=== PATIENT | male | born 1990 | race Caucasian/White ===

== ENCOUNTER 2017-09-12 17:45 | Emergency (ER) | payer MEDICAID, OTHER ==
[2017-09-12 18:57] LABS: Urine Appearance Cloudy; Urine Blood 3+ (Negative); Urine Color Yellow; Urine Ketones Negative (Negative); Urine Protein 2+(100 mg/dL) (Negative); Urine Red Blood Cell 3+(>10/hpf) (Absent); Urine Specific Gravity 1.011 (1.010-1.030); Urine Urobilinogen Negative (Negative); Urine White Blood Cell 1+(6-10/hpf) (Absent)
[2017-09-12] MEDS ORDERED: Mouth Piece, Nicotine* 1 EACH CARTRIDGE INH PRN (19:00)
[2017-09-12] MEDS ORDERED: Nicotine Inhaler* 10 MG AMP INH ONE (19:00)
[2017-09-12] MEDS ORDERED: Mouth Piece, Nicotine* 1 EACH CARTRIDGE ONE (19:05)
--- NOTE | 2017-09-12 19:31 | ED ---
Psychiatric Complaint - HPI Summary HPI Summary: This is inessa Pastrana documenting for attending Willis Christy MD. This patient is a 27 year old M BIBA to ED with a chief complaint of depression since [employer]. He reports that he broke down in the middle of traffic at a stop light. He was crying because his friend had recently and his ashes were spread this morning. Broke down in middle of traffic at a stop light. Crying and friend recently and spread his ashes this morning. The patient rates the pain 0/10 in severity. Symptoms aggravated by recent loss. Symptoms alleviated by nothing. Patient reports feeling depressed but has been eating and drinking okay. Patient denies SI. He is not taking medications and has no hx of depression or anxiety. The patient has done marijuana occasionally and heroine a few times. - History Of Current Complaint Chief Complaint: EDMentalHealth Time Seen by Provider: 09/12/17 18:45 Hx Obtained From: Patient Onset/Duration: Sudden Onset, Lasting Hours, Still Present Timing: Hours Severity Currently: None Character: Depressed Aggravating Factor(s): Other - recent loss Alleviating Factor(s): Nothing Related History: Negative For: Prior Psychiatric Issues Has Suicidal: Denies: Thoughts Recent Stressor(s): loss of a friend - Allergies/Home Medications Allergies/Adverse Reactions: Allergies Allergy/AdvReac Type Severity Reaction Status Date / Time No Known Allergies Allergy Verified 09/12/17 17:58 Home Medications: Home Medications Buprenorphine HCl/Naloxone HCl [Suboxone] 1 film SL BID 09/12/17 [History Confirmed 09/12/17] Mirtazapine TAB* [Remeron TAB*] 30 mg PO BEDTIME 09/12/17 [History Confirmed ] PMH/Surg Hx/FS Hx/Imm Hx Endocrine/Hematology History: Denies: Hx Diabetes Cardiovascular History: Denies: Hx Coronary Artery Disease, Hx Hypertension History: Reports: Hx Renal Disease Infectious Disease History: No Infectious Disease History: Denies: Traveled Outside the [place] in Last 30 Days - Family History Known Family History: Negative: Cardiac Disease, Hypertension, Diabetes - Social History Alcohol Use: None Substance Use Type: Reports: Other Substance Use Comment - Amount & Last Used: Former Smoking Status (MU): Light Every Day Tobacco Smoker Review of Systems Positive: Other - has been eating and drinking okay Psychological: Other - crying in middle of traffic, "broke down"; denies SI Positive: Depressed All Other Systems Reviewed And Are Negative: Yes Physical Exam - Summary Physical Exam Summary: VITAL SIGNS: Reviewed. GENERAL: Patient is a well-developed and nourished MALE who is lying comfortable in the stretcher. Patient is not in any acute respiratory distress. HEAD AND FACE: No signs of trauma. No ecchymosis, hematomas or skull depressions. No sinus tenderness. EYES: PERRLA, EOMI x 2, No injected conjunctiva, no nystagmus. EARS: Hearing grossly intact. Ear canals and tympanic membranes are within normal limits. MOUTH: Oropharynx within normal limits. NECK: Supple, trachea is midline, no adenopathy, no JVD, no carotid bruit, no c- spine tenderness, neck with full ROM. CHEST: Symmetric, no tenderness at palpation LUNGS: Clear to auscultation bilaterally. No wheezing or crackles. CVS: Regular rate and rhythm, S1 and S2 present, no murmurs or gallops appreciated. ABDOMEN: Soft, non-tender. No signs of distention. No rebound no guarding, and no masses palpated. Bowel sounds are normal. EXTREMITIES: FROM in all major joints, no edema, no cyanosis or clubbing. NEURO: Alert and oriented x 3. No acute neurological deficits. Speech is normal and follows commands. SKIN: Dry and warm PSYCH: Depressed, quiet, and denies any suicidal thoughts or plan. No homicidal thoughts or plan. No signs of psychosis or pressure speech. No tangential speech. Triage Information Reviewed: Yes Vital Signs On Initial Exam: Initial Vitals Temp Pulse Resp BP Pulse Ox 99.0 F 117 16 128/85 97 09/12/17 17:45 09/12/17 17:45 09/12/17 17:45 09/12/17 17:45 09/12/17 17:45 Vital Signs Reviewed: Yes Diagnostics - Vital Signs Vital Signs Temp Pulse Resp BP Pulse Ox 09/12/17 19:00 99.5 F 95 16 123/79 98 09/12/17 17:45 99.0 F 117 16 128/85 97 - Laboratory Lab Results: Lab Results 09/12/17 09/12/17 Range/Units 18:34 18:34 Urine Color Yellow Urine Appearance Cloudy Urine pH 7.0 (5-9) Ur Specific [place] 1.011 (1.010-1.030) Urine Protein 2+(100 mg/dl) A (Negative) Urine Ketones Negative (Negative) Urine Blood 3+ A (Negative) Urine Nitrate Positive A (Negative) Urine Bilirubin Negative (Negative) Urine Urobilinogen Negative (Negative) Ur Leukocyte Esterase 1+ A (Negative) Urine WBC (Auto) 1+(6-10/hpf) A (Absent) Urine RBC (Auto) 3+(>10/hpf) A (Absent) Urine Bacteria Absent (Absent) Urine Glucose Negative (Negative) Urine Opiates Screen Presumptive positive A (None Detect) Ur Barbiturates Screen None detected (None Detect) Ur Phencyclidine Scrn None detected (None Detect) Ur Amphetamines Screen None detected (None Detect) U Benzodiazepines Scrn None detected (None Detect) Urine Cocaine Screen None detected (None Detect) U Cannabinoids Screen Presumptive positive A (None Detect) Result Diagrams: 09/12/17 20:32 09/12/17 20:32 Lab Statement: Any lab studies that have been ordered have been reviewed, and results considered in the medical decision making process. Course/Dx - Course Assessment/Plan: Blood work without a significant abnormalities except for positive opiates and cannabinoids. Patient is medically cleared. Patient is awaiting for mental health evaluation. Patient will be signed out to Dr. Mccabe for at shift change. The patient is at this time cooperative and hemodynamically stable. - Differential Dx/Clinical Impression Provider Diagnosis: Depression Discharge - Sign-Out/Discharge Documenting (check all that apply): Sign-Out Patient Signing out patient TO: Larry Mccabe - Discharge Plan Referrals: Chavo Hussein MD [Primary Care Provider] -
[2017-09-12 20:37] LABS: ABS Basophils 0 10^3/ul (0-0.2); ABS Eosinophils 0.1 10^3/ul (0-0.6); ABS Lymphocytes 0.7 10^3/ul (1.0-4.8); ABS Monocytes 0.6 10^3/ul (0-0.8); ABS Neutrophils 4.1 10^3/ul (1.5-7.7); ABS Nucleated RBC 0 10^3/ul; Eosinophil % 1.2 % (0-6); Hematocrit 28 % (42-52); Hemoglobin 9.6 g/dl (14.0-18.0); Lymphocyte % 12.7 % (25-47); Mean Corpuscular HGB Conc 34 g/dl (31-36); Mean Corpuscular Hemoglobin 26 pg (27-31); Mean Corpuscular Volume 77 fL (80-94); Mean Platelet Volume 6.7 um3 (7.4-10.4); Nucleated Red Blood Cells % 0.1; Platelet Count 167 10^3/ul (150-450); Red Blood Count 3.65 10^6/ul (4.00-5.40); Red Cell Distribution Width 14 % (10.5-15); White Blood Count 5.5 10^3/ul (3.5-10.8)
[2017-09-12 20:57] LABS: EGFR Non-African American 54.9 (>60)
--- NOTE | 2017-09-13 03:54 | ED ---
Progress - Progress Note Progress Note: Pending evaluation in morning. - Consult/PCP Time Called: 01:28 Re-Evaluation - Re-Evaluation First Eval Re-Evaluation Time: 03:50 Change: Unchanged Comment: Cement Paver discussed pt with Emiliano. Pt will be held until morning to be re-evaluated and get collatorals. Course/Dx - Course Course Of Treatment: Pending evaluation. - Diagnoses Provider Diagnoses: Depression Discharge - Sign-Out/Discharge Documenting (check all that apply): Sign-Out Patient, Receiving Sign-Out Signing out patient TO: Donte Spring Receiving patient FROM: Bart Kee - Discharge Plan Referrals: Chavo Hussein MD [Primary Care Provider] -
--- NOTE | 2017-09-13 09:25 | PN ---
ED Flex Patient Progress Note Date of Service: 09/12/17 Subjective: This is a 27 year-old M who is pending admission to [facility] / transfer to another psychiatric facility / discharge to home / or being observed secondary to depression. Pt. examined around 0830 in F1. He is watching TV and offers no complaints. Objective: Vitals: Most recent vital signs documented below. General NAD, Alert and oriented x3. Laboratory: Current laboratory results documented below. Assessment: Pending MHE. Plan: Pending psychiatric or medical consultation to observe / transfer / admit / discharge will follow up daily . Vital Signs Temp Pulse Resp BP Pulse Ox 99.5 F 81 15 101/63 100 09/13/17 00:25 09/13/17 00:25 09/13/17 00:25 09/13/17 00:25 09/13/17 00:25 Lab Results - Entire Visit 09/12/17 09/12/17 09/12/17 20:32 20:32 18:34 WBC 5.5 RBC 3.65 L Hgb 9.6 L Hct 28 L MCV 77 L MCH 26 L MCHC 34 RDW 14 Plt Count 167 MPV 6.7 L Neut % (Auto) 75.5 Lymph % (Auto) 12.7 L [place] % (Auto) 10.3 H Eos % (Auto) 1.2 Baso % (Auto) 0.3 Absolute Neuts (auto) 4.1 Absolute Lymphs (auto) 0.7 L Absolute Monos (auto) 0.6 Absolute Eos (auto) 0.1 Absolute Basos (auto) 0 Absolute Nucleated RBC 0 Nucleated RBC % 0.1 Sodium 134 L Potassium 3.9 Chloride 97 L Carbon Dioxide 30 Anion Gap 7 BUN 26 H Creatinine 1.51 H Est GFR ( Amer) 66.4 Est GFR (Non-Af Amer) 54.9 BUN/Creatinine Ratio 17.2 Glucose 121 H Calcium 8.9 Total Bilirubin 0.20 AST 14 ALT 20 Alkaline Phosphatase 99 Total Protein 7.0 Albumin 3.5 Globulin 3.5 Albumin/Globulin Ratio 1.0 TSH 3.88 Urine Color Urine Appearance Urine pH Ur Specific [place] Urine Protein Urine Ketones Urine Blood Urine Nitrate Urine Bilirubin Urine Urobilinogen Ur Leukocyte Esterase Urine WBC (Auto) Urine RBC (Auto) Urine Bacteria Urine Glucose Salicylates < 2.50 Urine Opiates Screen Presumptive positive A Acetaminophen < 15 Ur Barbiturates Screen None detected Ur Phencyclidine Scrn None detected Ur Amphetamines Screen None detected U Benzodiazepines Scrn None detected Urine Cocaine Screen None detected U Cannabinoids Screen Presumptive positive A Serum Alcohol < 10 09/12/17 18:34 WBC RBC Hgb Hct MCV MCH MCHC RDW Plt Count MPV Neut % (Auto) Lymph % (Auto) [place] % (Auto) Eos % (Auto) Baso % (Auto) Absolute Neuts (auto) Absolute Lymphs (auto) Absolute Monos (auto) Absolute Eos (auto) Absolute Basos (auto) Absolute Nucleated RBC Nucleated RBC % Sodium Potassium Chloride Carbon Dioxide Anion Gap BUN Creatinine Est GFR ( Amer) Est GFR (Non-Af Amer) BUN/Creatinine Ratio Glucose Calcium Total Bilirubin AST ALT Alkaline Phosphatase Total Protein Albumin Globulin Albumin/Globulin Ratio TSH Urine Color Yellow Urine Appearance Cloudy Urine pH 7.0 Ur Specific [place] 1.011 Urine Protein 2+(100 mg/dl) A Urine Ketones Negative Urine Blood 3+ A Urine Nitrate Positive A Urine Bilirubin Negative Urine Urobilinogen Negative Ur Leukocyte Esterase 1+ A Urine WBC (Auto) 1+(6-10/hpf) A Urine RBC (Auto) 3+(>10/hpf) A Urine Bacteria Absent Urine Glucose Negative Salicylates Urine Opiates Screen Acetaminophen Ur Barbiturates Screen Ur Phencyclidine Scrn Ur Amphetamines Screen U Benzodiazepines Scrn Urine Cocaine Screen U Cannabinoids Screen Serum Alcohol
[2017-09-13 09:42] VITALS: BP 114/73
--- NOTE | 2017-09-15 18:29 | PN ---
Progress Note - Progress Note Date of Service: 09/12/17 Note: Pt. seen in ER 09/12 for MHE. Urine culture obtained and is growing >100,000 enterobacter. Pt. was dc home. Attempted to call pt. to at 0855 but there was no answer and no voicemail. Certified letter sent.
== END 2017-09-13 04:15 | disposition home or self-care (01) ==
LOC: ED 17:45
DX: F32.9 Major depressive disorder, single episode, unspecified (principal); F17.210 Nicotine dependence, cigarettes, uncomplicated
CPT/HCPCS: 36415; 80053; 80307; 80320; 80329; 81003; 81015; 84443; 85025; 87077; 87086; 87186; 99283; A9270-GY; G0480

== ENCOUNTER 2018-04-14 12:19 | Emergency (ER) | payer OTHER ==
[2018-04-14 12:30] VITALS: BP 126/76
--- NOTE | 2018-04-14 13:04 | UC ---
Complaint Male HPI - HPI Summary HPI Summary: Intermittent left testicular pain over the past few weeks. No urinary symptoms or fever. A few days ago pain increased and left testicle became very swollen. Admits to unprotected sex with multiple partners over the past few months. No penile discharge. - History of Current Complaint Chief Complaint: UCGU Stated Complaint: PERSONAL Time Seen by Provider: 04/14/18 12:37 Hx Obtained From: Patient Onset/Duration: Gradual Onset, Lasting Weeks, Still Present Timing: Constant Severity Initially: Moderate Severity Currently: Moderate Pain Intensity: 7 Pain Scale Used: 0-10 Numeric Location: Testicle Character: Sharp Aggravating Factor(s): Palpation Alleviating Factor(s): Other - aspirin Associated Signs And Symptoms: Negative: Back Pain, Fever, Hematuria, Dysuria, Nausea, Penile Discharge - Allergies/Home Medications Allergies/Adverse Reactions: Allergies Allergy/AdvReac Type Severity Reaction Status Date / Time No Known Allergies Allergy Verified 04/14/18 12:30 Home Medications: Home Medications Gabapentin 1 tab PO DAILY 04/14/18 [History Confirmed 04/14/18] traZODone TAB* [Desyrel TAB*] 1 tab PO DAILY 04/14/18 [History Confirmed ] PMH/Surg Hx/FS Hx/Imm Hx Previously Healthy: Yes - Surgical History Surgical History: None - Family History Known Family History: Negative: Cardiac Disease, Hypertension, Diabetes - Social History Alcohol Use: None Substance Use Type: None Substance Use Comment - Amount & Last Used: Former Smoking Status (MU): Light Every Day Tobacco Smoker Review of Systems All Other Systems Reviewed And Are Negative: Yes Constitutional: Positive: Negative Respiratory: Positive: Negative Cardiovascular: Positive: Negative Gastrointestinal: Positive: Negative Genitourinary: Positive: Other - LEFT TESTICULAR PAIN, SWELLING. Negative: Vaginal/Penile Discharge Physical Exam Triage Information Reviewed: Yes Appearance: Well-Appearing, No Pain Distress, Well-Nourished Vital Signs: Initial Vital Signs Temp 99.2 F 04/14/18 12:26 Pulse 86 04/14/18 12:26 Resp 18 04/14/18 12:26 BP 126/76 04/14/18 12:26 Pulse Ox 100 04/14/18 12:26 Laboratory Tests 04/14/18 12:38 POC Urine Color Yellow POC Urine Clarity Clear POC Urine pH 5.5 POC Ur Specif [place] >= 1.030 POC Urine Protein 1+ A POC Ur Glucose (UA) Negative POC Urine Ketones Negative POC Urine Blood 3+ A POC Urine Nitrite Negative POC Urine Bilirubin Negative POC Urine Urobilinogen 0.2 POC U Leukocyte Esteras Trace A Vital Signs Reviewed: Yes Eyes: Positive: Conjunctiva Clear ENT: Positive: Hearing grossly normal Neck: Positive: Supple Respiratory: Positive: No respiratory distress, No accessory muscle use Cardiovascular: Positive: Pulses Normal Abdomen Description: Positive: Nontender, Soft Male Genital Exam: Positive: Epididymal Tenderness, Scrotum Tenderness (L), Testicular Tenderness (L), Other - LEFT SCROTUM BOGGY. SHOTTY BILATERAL INGUINAL LAD. NO LESIONS. Negative: Scrotum Tenderness (R), Testicular Tenderness (R), Urethral Discharge Musculoskeletal: Positive: No Edema Neurological: Positive: Alert Psychological: Positive: Age Appropriate Behavior Skin: Negative: Rashes Diagnostics - Radiology TESTICULAR US Radiology Interpretation Completed By: Radiologist Summary of Radiographic Findings: 1. FINDINGS MOST CONSISTENT WITH LEFT EPIDIDYMITIS. 2. COMPLEX LEFT HYDROCELE. Complaint Male Course/Dx - Differential Dx/Diagnosis Provider Diagnosis: Left epididymitis, Left hydrocele Discharge - Sign-Out/Discharge Documenting (check all that apply): Patient Departure All imaging exams completed and their final reports reviewed: Yes - Discharge Plan Condition: Stable Disposition: HOME Prescriptions: Doxycycline Monohydrate 1 cap PO BID #20 cap Patient Education Materials: Epididymitis (ED), Hydrocele (ED) Referrals: Chavo Hussein MD [Primary Care Provider] - If Needed Margarito Menjivar MD [Medical Doctor] - 3 Days Additional Instructions: TESTICULAR ULTRASOUND TODAY SHOWED: 1. FINDINGS MOST CONSISTENT WITH LEFT EPIDIDYMITIS. 2. COMPLEX LEFT HYDROCELE. CALL UROLOGY TODAY FOR A FOLLOW-UP APPT WITHIN A FEW DAYS. YOU HAVE BEEN GIVEN A SHOT OF 250MG ROCEPHIN TODAY. TAKE THE DOXYCYCLINE TWICE DAILY FOR THE FULL 10 DAYS. NO SEX FOR AT LEAST 2 WEEKS. YOUR URINE HAS BEEN SENT FOR CULTURE AND TESTING FOR GONORRHEA AND CHLAMYDIA. GO TO THE ER WITHOUT FAIL IF YOU DEVELOP WORSENING SWELLING, PAIN, FEVER, NAUSEA , INABILITY TO URINATE, BLOOD IN THE URINE OR ANY OTHER CONCERNING SYMPTOMS. - Billing Disposition and Condition Condition: STABLE Disposition: Home
[2018-04-14] MEDS ORDERED: Lidocaine 1%* 5 ML VIAL INJ ONE (13:46)
[2018-04-14] MEDS: cefTRIAXone VIAL(*) 250 MG VIAL IM ONE ×2 (13:51→13:52)
--- NOTE | 2018-04-15 15:33 | UC ---
- Progress Note Progress Note: urine cx NEGATIVE/NO GROWTH. ok to stop antibx. Course/Dx - Diagnoses Provider Diagnoses: Left epididymitis, Left hydrocele Discharge - Sign-Out/Discharge Documenting (check all that apply): Post-Discharge Follow Up All imaging exams completed and their final reports reviewed: Yes - Discharge Plan Condition: Stable Disposition: HOME Prescriptions: Doxycycline Monohydrate 1 cap PO BID #20 cap Patient Education Materials: Epididymitis (ED), Hydrocele (ED) Referrals: Chavo Hussein MD [Primary Care Provider] - If Needed Margarito Menjivar MD [Medical Doctor] - 3 Days Additional Instructions: TESTICULAR ULTRASOUND TODAY SHOWED: 1. FINDINGS MOST CONSISTENT WITH LEFT EPIDIDYMITIS. 2. COMPLEX LEFT HYDROCELE. CALL UROLOGY TODAY FOR A FOLLOW-UP APPT WITHIN A FEW DAYS. YOU HAVE BEEN GIVEN A SHOT OF 250MG ROCEPHIN TODAY. TAKE THE DOXYCYCLINE TWICE DAILY FOR THE FULL 10 DAYS. NO SEX FOR AT LEAST 2 WEEKS. YOUR URINE HAS BEEN SENT FOR CULTURE AND TESTING FOR GONORRHEA AND CHLAMYDIA. GO TO THE ER WITHOUT FAIL IF YOU DEVELOP WORSENING SWELLING, PAIN, FEVER, NAUSEA , INABILITY TO URINATE, BLOOD IN THE URINE OR ANY OTHER CONCERNING SYMPTOMS. - Billing Disposition and Condition Condition: STABLE Disposition: Home
--- NOTE | 2018-04-16 16:56 | UC ---
- Progress Note Progress Note: Review of chart and advice to give this patient. Clinical record reviewed, with diagnosis of epididymitis with associated testicular swelling. Chlamydia is still pending. Even if Chlamydia is negative, I advise continuation of the doxycycline given the clinical history and diagnosis of epididymitis. Course/Dx - Diagnoses Provider Diagnoses: Left epididymitis, Left hydrocele Discharge - Sign-Out/Discharge Documenting (check all that apply): Patient Departure All imaging exams completed and their final reports reviewed: Yes - Discharge Plan Condition: Stable Disposition: HOME Prescriptions: Doxycycline Monohydrate 1 cap PO BID #20 cap Patient Education Materials: Epididymitis (ED), Hydrocele (ED) Referrals: Chavo Hussein MD [Primary Care Provider] - If Needed Margarito Menjivar MD [Medical Doctor] - 3 Days Additional Instructions: TESTICULAR ULTRASOUND TODAY SHOWED: 1. FINDINGS MOST CONSISTENT WITH LEFT EPIDIDYMITIS. 2. COMPLEX LEFT HYDROCELE. CALL UROLOGY TODAY FOR A FOLLOW-UP APPT WITHIN A FEW DAYS. YOU HAVE BEEN GIVEN A SHOT OF 250MG ROCEPHIN TODAY. TAKE THE DOXYCYCLINE TWICE DAILY FOR THE FULL 10 DAYS. NO SEX FOR AT LEAST 2 WEEKS. YOUR URINE HAS BEEN SENT FOR CULTURE AND TESTING FOR GONORRHEA AND CHLAMYDIA. GO TO THE ER WITHOUT FAIL IF YOU DEVELOP WORSENING SWELLING, PAIN, FEVER, NAUSEA , INABILITY TO URINATE, BLOOD IN THE URINE OR ANY OTHER CONCERNING SYMPTOMS. - Billing Disposition and Condition Condition: STABLE Disposition: Home
[2018-04-17 13:54] LABS: Neisseria gonorrhoeae (GC) RNA Negative (Negative)
--- NOTE | 2018-04-17 18:11 | UC ---
- Progress Note Progress Note: Patient will be called by nurse, should continue doxycycline for full course and no sexual activity x 1 week after completing antibiotics. -Liliya Junior PAC Course/Dx - Diagnoses Provider Diagnoses: Left epididymitis, Left hydrocele Discharge - Sign-Out/Discharge Documenting (check all that apply): Patient Departure All imaging exams completed and their final reports reviewed: Yes - Discharge Plan Condition: Stable Disposition: HOME Prescriptions: Doxycycline Monohydrate 1 cap PO BID #20 cap Patient Education Materials: Epididymitis (ED), Hydrocele (ED) Referrals: Chavo Hussein MD [Primary Care Provider] - If Needed Margarito Menjivar MD [Medical Doctor] - 3 Days Additional Instructions: TESTICULAR ULTRASOUND TODAY SHOWED: 1. FINDINGS MOST CONSISTENT WITH LEFT EPIDIDYMITIS. 2. COMPLEX LEFT HYDROCELE. CALL UROLOGY TODAY FOR A FOLLOW-UP APPT WITHIN A FEW DAYS. YOU HAVE BEEN GIVEN A SHOT OF 250MG ROCEPHIN TODAY. TAKE THE DOXYCYCLINE TWICE DAILY FOR THE FULL 10 DAYS. NO SEX FOR AT LEAST 2 WEEKS. YOUR URINE HAS BEEN SENT FOR CULTURE AND TESTING FOR GONORRHEA AND CHLAMYDIA. GO TO THE ER WITHOUT FAIL IF YOU DEVELOP WORSENING SWELLING, PAIN, FEVER, NAUSEA , INABILITY TO URINATE, BLOOD IN THE URINE OR ANY OTHER CONCERNING SYMPTOMS. - Billing Disposition and Condition Condition: STABLE Disposition: Home
== END 2018-04-14 14:16 | disposition home or self-care (01) ==
LOC: UCEAST 12:19
DX: N45.1 Epididymitis (principal); N43.3 Hydrocele, unspecified
CPT/HCPCS: 76870; 81003; 87086; 87491; 87591; 96372; 99212; G0463; J0696

== ENCOUNTER 2018-07-03 03:22 | Emergency (ER) | payer OTHER ==
--- NOTE | 2018-07-03 03:42 | ED ---
Psychiatric Complaint - HPI Summary HPI Summary: This patient is a 27 year old M brought in by ambulance to ED with a chief complaint of visual and auditory hallucinations since earlier tonight. The patient saw people in his yard and heard a aaron phone ring and then man talking into the phone. He then went to bed and got up again to get a drink when he thought he saw a man and called the clinical nursing coordinator. The patient lives alone but his landlord does live in the apartment above him. The patient rates the pain 0/ 10 in severity. Symptoms aggravated by nothing. Symptoms alleviated by nothing. Patient denies SI/HI. He denies any other complaints. The patient did relapse two days ago on heroine and some other kind of drug. He reports he has not had anything today. The patient is on Suboxone, Gabapentin, and Trazadone. He reports he has not had any episodes similar to this before. PMHx of depression and anxiety. - History Of Current Complaint Chief Complaint: EDMentalHealth Time Seen by Provider: 07/03/18 03:29 Hx Obtained From: Patient Onset/Duration: Sudden Onset, Resolved Timing: Intermittent Episode Lasting Severity Currently: None Aggravating Factor(s): Nothing Alleviating Factor(s): Nothing Associated Signs And Symptoms: Positive: Hallucinating - visual and auditory Related History: Positive For: Prior Psychiatric Issues Has Suicidal: Denies: Thoughts, With A Plan - Allergies/Home Medications Allergies/Adverse Reactions: Allergies Allergy/AdvReac Type Severity Reaction Status Date / Time No Known Allergies Allergy Verified 04/14/18 12:30 PMH/Surg Hx/FS Hx/Imm Hx Endocrine/Hematology History: Denies: Hx Diabetes Cardiovascular History: Denies: Hx Coronary Artery Disease, Hx Hypertension History: Reports: Hx Renal Disease Psychiatric History: Denies: Hx of Violent Episodes Against Others Infectious Disease History: No Infectious Disease History: Denies: Traveled Outside the [place] in Last 30 Days - Family History Known Family History: Negative: Cardiac Disease, Hypertension, Diabetes - Social History Alcohol Use: None Substance Use Type: Reports: None Substance Use Comment - Amount & Last Used: Former Smoking Status (MU): Light Every Day Tobacco Smoker Review of Systems Positive: Other - has no other complaints Psychological: Other - visual and auditory hallucinations; denies SI/HI All Other Systems Reviewed And Are Negative: Yes Physical Exam - Summary Physical Exam Summary: VITAL SIGNS: Reviewed. GENERAL: Patient is a well-developed and nourished MALE who is lying comfortable in the stretcher. Patient is not in any acute respiratory distress. HEAD AND FACE: No signs of trauma. No ecchymosis, hematomas or skull depressions. No sinus tenderness. EYES: PERRLA, EOMI x 2, No injected conjunctiva, no nystagmus. EARS: Hearing grossly intact. Ear canals and tympanic membranes are within normal limits. MOUTH: Oropharynx within normal limits. NECK: Supple, trachea is midline, no adenopathy, no JVD, no carotid bruit, no c- spine tenderness, neck with full ROM CHEST: Symmetric, no tenderness at palpation LUNGS: Clear to auscultation bilaterally. No wheezing or crackles. CVS: Regular rate and rhythm, S1 and S2 present, no murmurs or gallops appreciated. ABDOMEN: Soft, non-tender. No signs of distention. No rebound no guarding, and no masses palpated. Bowel sounds are normal. EXTREMITIES: FROM in all major joints, no edema, no cyanosis or clubbing. NEURO: Alert and oriented x 3. No acute neurological deficits. Speech is normal and follows commands. SKIN: Dry and warm Triage Information Reviewed: Yes Vital Signs On Initial Exam: Initial Vitals Temp Pulse Resp BP Pulse Ox 98.9 F 118 18 140/84 96 07/03/18 03:28 07/03/18 03:28 07/03/18 03:28 07/03/18 03:28 07/03/18 03:28 Vital Signs Reviewed: Yes Diagnostics - Vital Signs Vital Signs Temp Pulse Resp BP Pulse Ox 07/03/18 03:28 98.9 F 118 18 140/84 96 - Laboratory Result Diagrams: 07/03/18 03:46 07/03/18 03:46 Lab Statement: Any lab studies that have been ordered have been reviewed, and results considered in the medical decision making process. Course/Dx - Course Assessment/Plan: This patient is a 27 year old M brought in by ambulance to ED with a chief complaint of visual and auditory hallucinations since earlier tonight. This patient is medically cleared for MHE at 0442. MHE done by Dr. Parks at 0546. 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 Patient understands and agrees with this plan. - Differential Dx/Clinical Impression Differential Diagnosis/HQI/PQRI: Positive: Other - drug induced psychosis Provider Diagnosis: Drug-induced psychotic disorder Discharge - Sign-Out/Discharge Documenting (check all that apply): Patient Departure - discharge Patient Received Moderate/Deep Sedation with Procedure: No - Discharge Plan Condition: Stable Disposition: HOME Patient Education Materials: Brief Psychotic Disorder (ED) Referrals: Chavo Hussein MD [Primary Care Provider] - 3 Days Additional Instructions: Per completion of a mental health evaluation, you are cleared for release and do not require inpatient psychiatric hospitalization at this time. Please go to nearest emergency room or call 911 if safety concerns arise or condition worsens. Important Phone Numbers: [facility] . [phone] Suicide Prevention and Crisis Services........................ [phone] [facility] Prevention [facility]............................ [phone] ([phone]) [facility]....................... [phone] Alcoholics Anonymous............................................... [facility].............. [phone] [facility].............................................. [phone] - Attestation Statements Document Initiated by Scribe: Yes Documenting Scribe: Pancho Pastrana Provider For Whom Iwona is Documenting (Include Credential): Larry Mccabe MD Scribe Attestation: Pancho Hager, scribed for Larry Mccabe MD on 07/03/18 at 0546. Status of Scribe Document: Ready
[2018-07-03 03:57] LABS: ABS Eosinophils 0.1 10^3/ul (0-0.6); ABS Lymphocytes 1.1 10^3/ul (1.0-4.8); ABS Monocytes 0.6 10^3/ul (0-0.8); ABS Neutrophils 4.7 10^3/ul (1.5-7.7); Eosinophil % 1.1 %; Hematocrit 37 % (42-52); Hemoglobin 12.3 g/dL (14.0-18.0); Lymphocyte % 16.2 %; Mean Corpuscular HGB Conc 33 g/dL (31-36); Mean Corpuscular Hemoglobin 26 pg (27-31); Mean Corpuscular Volume 78 fL (80-94); Mean Platelet Volume 7.1 fL (7.4-10.4); Nucleated Red Blood Cells % 0.1; Platelet Count 179 10^3/uL (150-450); Red Blood Count 4.77 10^6 /uL (4.18-5.48); Red Cell Distribution Width 15 % (10.5-15); White Blood Count 6.5 10^3/uL (3.5-10.8)
[2018-07-03 04:09] LABS: ALT 35 U/L (7-52); AST 67 U/L (13-39); Albumin 4.2 g/dL (3.2-5.2); Albumin/Globulin Ratio 1.1 (1-3); Alkaline Phosphatase 87 U/L (34-104); Anion Gap 7 mmol/L (2-11); BUN/Creatinine Ratio 21.2 (8-20); Blood Urea Nitrogen 29 mg/dL (6-24); CO2 Carbon Dioxide 30 mmol/L (22-32); Calcium 10.2 mg/dL (8.6-10.3); Chloride 97 mmol/L (101-111); EGFR African American 74.3 (>60); EGFR Non-African American 61.4 (>60); Globulin 3.8 g/dL (2-4); Glucose 155 mg/dL (70-100); Potassium 4.4 mmol/L (3.5-5.0); Sodium 134 mmol/L (135-145)
[2018-07-03 04:15] LABS: Acetaminophen < 15 mcg/mL; Alcohol < 10 mg/dL (<10); Salicylate < 2.50 mg/dL (<30)
[2018-07-03 04:31] LABS: TSH (Thyroid Stimulating Horm) 0.01 mcIU/mL (0.34-5.60)
[2018-07-03 04:34] LABS: Urine Appearance Cloudy; Urine Bacteria Absent (Absent); Urine Bilirubin Negative (Negative); Urine Blood 1+ (Negative); Urine Color Yellow; Urine Glucose Negative (Negative); Urine Ketones Negative (Negative); Urine Nitrite Negative (Negative); Urine Protein 1+(30 mg/dL) (Negative); Urine Red Blood Cell 3+(>10/hpf) (Absent); Urine Specific Gravity 1.019 (1.010-1.030); Urine Squamous Epithelial Cell Present (Absent); Urine Urobilinogen Negative (Negative); Urine White Blood Cell Trace(0-5/hpf) (Absent)
[2018-07-03 04:46] LABS: Urine Benzodiazepine Screen None Detected (None Detect); Urine Opiates Screen Presumptive Positive (None Detect)
[2018-07-03 05:48] VITALS: BP 121/91
== END 2018-07-03 05:50 | disposition home or self-care (01) ==
LOC: ED 03:22
DX: F19.959 Other psychoactive substance use, unspecified with psychoactive substance-induced psychotic disorder, unspecified (principal); Z87.891 Personal history of nicotine dependence; Z79.899 Other long term (current) drug therapy
CPT/HCPCS: 36415; 80053; 80307; 80320; 80329; 81003; 81015; 84443; 85025; 87086; 99283; G0480

== ENCOUNTER 2019-02-04 22:01 | Emergency (ER) | payer SELFPAY ==
--- NOTE | 2019-02-04 22:16 | ED ---
Complex/Multi-Sys Presentation - HPI Summary HPI Summary: 28 year old M brought in by EMS to [facility] complains of bradycardia and low body temperature since minutes prior to arrival. EMS found patient in the [place] screaming for help. Unknown length of time outside. EMS noted that patient was wet from lower extremities down. HR 30s per EMS. The patient rates the pain 0/ 10 in severity. Symptoms aggravated by nothing. Symptoms alleviated by nothing. Patient states he was hanging out in the [place] with people. He is unsure how he ended up in the [place]. Admits to taking clonidine. Denies using other drugs or drinking alcohol earlier today. Currently unemployed and lives in [place]. Admits to using heroin 2 days ago. Rectal temp 89F per nurse. Roosevelt Hugger placed. - History Of Current Complaint Chief Complaint: EDExposureHeatCold Time Seen by Provider: 02/04/19 22:12 Hx Obtained From: Patient, EMS Onset/Duration: Still Present Timing: Constant Severity Currently: None Aggravating Factor(s): Nothing Alleviating Factor(s): Nothing - Allergies/Home Medications Allergies/Adverse Reactions: Allergies Allergy/AdvReac Type Severity Reaction Status Date / Time No Known Allergies Allergy Verified 04/14/18 12:30 PMH/Surg Hx/FS Hx/Imm Hx Endocrine/Hematology History: Denies: Hx Diabetes Cardiovascular History: Denies: Hx Coronary Artery Disease, Hx Hypertension History: Reports: Hx Renal Disease Psychiatric History: Denies: Hx of Violent Episodes Against Others - Surgical History Surgical History: None Infectious Disease History: No Infectious Disease History: Denies: Traveled Outside the [place] in Last 30 Days - Family History Known Family History: Negative: Cardiac Disease, Hypertension, Diabetes - Social History Alcohol Use: None Hx Substance Use: Yes Substance Use Type: Reports: Heroin - last used 02/02/19 Hx Tobacco Use: Yes Smoking Status (MU): Light Every Day Tobacco Smoker Review of Systems Positive: Other - low body temperature Positive: Other - bradycardia All Other Systems Reviewed And Are Negative: Yes Physical Exam - Summary Physical Exam Summary: Appearance: Generally healthy appearing young man lying in the stretcher shivering. Vital signs are notable for bradycardia. Checked femoral artery pulse which was in the 30s and regular. Blood pressure was measured at the radial artery with Doppler which was 120 over palp Skin: Warm, dry, no obvious rash Eyes: sclera anicteric, no conjunctival pallor ENT: mucous membranes moist, pharynx appears normal Neck: Supple, nontender Respiratory: Clear to auscultation, no signs of respiratory distress Cardiovascular: Normal S1, S2. No murmurs. Normal distal pulses in tibial and radial bilaterally. Abdomen: Soft, nontender, normal active bowel sounds present Musculoskeletal: Normal, Strength/ROM Intact Neurological: A&Ox3, awake and alert, mentation is normal, speech is fluent and appropriate Psychiatric: affect is normal, does not appear anxious or depressed Triage Information Reviewed: Yes Vital Signs On Initial Exam: Initial Vitals Temp Pulse Resp BP Pulse Ox 89.2 F 60 22 0/0 95 02/04/19 22:03 02/04/19 22:03 02/04/19 22:03 02/04/19 22:03 02/04/19 22:03 Vital Signs Reviewed: Yes Procedures - Sedation Patient Received Moderate/Deep Sedation with Procedure: No Diagnostics - Vital Signs Vital Signs Temp Pulse Resp BP Pulse Ox 02/04/19 22:03 89.2 F 60 22 0/0 95 - Laboratory Result Diagrams: 02/04/19 22:49 02/04/19 22:49 Lab Statement: Any lab studies that have been ordered have been reviewed, and results considered in the medical decision making process. - EKG 0024 Cardiac Rate: Bradycardia - 44 BPM EKG Rhythm: Sinus Bradycardia Summary of EKG Findings: Sinus bradycardia at 44 BPM, P waves, QRS complex, and T waves are within normal limits, T waves and intervals are normal, no ischemic changes. This is a normal EKG. Complex Multi-Symp Course/Dx Course Of Treatment: 28 year old M brought in by EMS to [facility] complains of bradycardia and low body temperature since minutes prior to arrival. EMS found patient in the [place] screaming for help. Unknown length of time outside. EMS noted that patient was wet from lower extremities down. HR 30s per EMS. Patient states he was hanging out in the [place] with people. He is unsure how he ended up in the [place]. Admits to taking clonidine. Denies using other drugs or drinking alcohol earlier today. Admits to using heroin 2 days ago. Rectal temp 89F per nurse. Roosevelt Hugger placed. Upon exam, the patient is a generally healthy appearing young man lying in the stretcher shivering. Vital signs are notable for bradycardia. Checked femoral artery pulse which was in the 30s and regular. Blood pressure was measured at the radial artery with Doppler which was 120 over palp. Bloodwork results with no significant abnormalities except for Hgb 11.7, Hct 35, MCV 76, MCH 26, RDW 17, absolute monos 1.0, potassium 3.3 , anion gap 13, BUN 43, BUN/creatinine 44.3, glucose 105, AST 46. Toxicology results with no significant abnormalities. An EKG shows sinus bradycardia at 44 BPM, P waves, QRS complex, and T waves are within normal limits, T waves and intervals are normal, no ischemic changes. This is a normal EKG. In the ED course, the patient was given normal saline 1 L IV and warmed with a bear hugger. Within a couple of hourse his body temperature and HR normalized. Patient is ambulating in the ED without any difficulties. Patient will be discharged home with follow up from his primary care provider. Patient was instructed to return to Emergency Department for new or worsening symptoms. Patient understands and is agreeable to this plan. - Diagnoses Provider Diagnoses: Hypothermia Discharge ED - Sign-Out/Discharge Documenting (check all that apply): Patient Departure - Discharge Plan Condition: Improved Disposition: HOME Patient Education Materials: Acute Hypothermia (ED), Opioid Safety (ED) Referrals: Chavo Hussein MD [Medical Doctor] - If Needed - Billing Disposition and Condition Condition: IMPROVED Disposition: Home - Attestation Statements Document Initiated by Iwona: Yes Documenting Scribe: Joslyn Matthew Provider For Whom Iwona is Documenting (Include Credential): Bart Lewis MD Scribe Attestation: Joslyn Hager, scribed for Bart Lewis MD on 02/05/19 at 0502. Scribe Documentation Reviewed: Yes Provider Attestation: The documentation as recorded by the Joslyn wylie accurately reflects the service I personally performed and the decisions made by me, Bart Lewis MD Status of Scribe Document: Viewed
[2019-02-04] MEDS ORDERED: NS 0.9% 1000 ML** 1,000 ML IV ONE (22:18)
[2019-02-04 22:56] LABS: ABS Lymphocytes 1.1 10^3/ul (1.0-4.8); Eosinophil % 0.1 %; Hematocrit 35 % (42-52); Hemoglobin 11.7 g/dL (14.0-18.0); Lymphocyte % 13.3 %; Mean Corpuscular HGB Conc 33 g/dL (31-36); Mean Corpuscular Hemoglobin 26 pg (27-31); Mean Corpuscular Volume 76 fL (80-94); Mean Platelet Volume 7.5 fL (7.4-10.4); Nucleated Red Blood Cells % 0.1; Platelet Count 191 10^3/uL (150-450); Red Blood Count 4.59 10^6 /uL (4.18-5.48); Red Cell Distribution Width 17 % (10-15); White Blood Count 8.2 10^3/uL (3.5-10.8)
[2019-02-04 23:13] LABS: ALT 23 U/L (7-52); AST 46 U/L (13-39); Albumin/Globulin Ratio 1.1 (1-3); Alkaline Phosphatase 77 U/L (34-104); Anion Gap 13 mmol/L (2-11); BUN/Creatinine Ratio 44.3 (8-20); Blood Urea Nitrogen 43 mg/dL (6-24); CO2 Carbon Dioxide 23 mmol/L (22-32); Calcium 9.6 mg/dL (8.6-10.3); Chloride 104 mmol/L (101-111); EGFR Non-African American 90.9 (>60); Globulin 3.7 g/dL (2-4); Glucose 105 mg/dL (70-100); Potassium 3.3 mmol/L (3.5-5.0); Sodium 140 mmol/L (135-145); Total Protein 7.7 g/dL (6.4-8.9)
[2019-02-04 23:14] LABS: Troponin I 0.01 ng/mL (<0.03)
[2019-02-05 00:54] LABS: Acetaminophen < 15 mcg/mL; Alcohol < 10 mg/dL (<10); Salicylate < 2.50 mg/dL (<30)
[2019-02-05 02:31] VITALS: BP 134/90
== END 2019-02-05 02:30 | disposition home or self-care (01) ==
LOC: ED 22:01
DX: T68.XXXA Hypothermia, initial encounter (principal); R00.1 Bradycardia, unspecified; F17.210 Nicotine dependence, cigarettes, uncomplicated; Z87.448 Personal history of other diseases of urinary system; Z79.899 Other long term (current) drug therapy
CPT/HCPCS: 36415; 80053; 80320; 80329; 83605; 84443; 84484; 85025; 93005; 96360; 99283; G0480